=== PATIENT | male | born 1960 | race Caucasian/White ===

== ENCOUNTER 2019-01-27 15:03 | Observation (INO) | payer OTHER ==
[~2019-01-27] VITALS: Ht 185.4 cm; Wt 131.5 kg
[2019-01-27 15:11] VITALS: BP 148/91
[2019-01-27] MEDS ORDERED: AMLO10TA PO (15:15)
[2019-01-27] MEDS ORDERED: LISI40TA12 PO (15:15)
[2019-01-27] MEDS ORDERED: ATEN50TA8 PO (15:17)
[2019-01-27] MEDS ORDERED: ORE25 PO (15:17)
[2019-01-27] MEDS ORDERED: METF1000 PO (15:25)
[2019-01-27] MEDS ORDERED: TRI48 PO (15:25)
[2019-01-27] MEDS ORDERED: CYCL10TA33 PO (15:25)
[2019-01-27] MEDS ORDERED: GABA400C PO (15:25)
[2019-01-27] MEDS ORDERED: LISI-420 PO (15:25)
[2019-01-27] MEDS ORDERED: IBUP-2213 PO (15:25)
[2019-01-27] MEDS ORDERED: GLIP10TE PO (15:25)
[2019-01-27] MEDS ORDERED: OMEP20TC12 PO (15:25)
[2019-01-27] MEDS ORDERED: ACET-787 PO (15:25)
[2019-01-27] MEDS ORDERED: VITD400 PO (15:25)
[2019-01-27 15:44] LABS: BASOPHILS # (AUTO) 0.1 K/uL (0.00-0.22); EOSINOPHILS # (AUTO) 0.2 K/uL (0-0.4); EOSINOPHILS % (AUTO) 2.8 % (0.0-4.0); HEMATOCRIT 36.4 % (36-52); HEMOGLOBIN 12.3 g/dL (12.0-18.0); LYMPHOCYTES # (AUTO) 1.1 K/uL (2.0-11.5); LYMPHOCYTES % (AUTO) 12.3 % (20.5-51.1); MEAN CORPUSCULAR HEMOGLOBIN 30 pg (27-31); MEAN CORPUSCULAR HGB CONC 34 g/dL (33-37); MEAN CORPUSCULAR VOLUME 88.7 fL (80-94); MONOCYTES # (AUTO) 0.4 K/uL (0.8-1.0); MONOCYTES % (AUTO) 4.8 % (1.7-9.3); NEUTROPHILS # (AUTO) 6.8 K/uL (1.8-7.7); NEUTROPHILS % (AUTO) 79.1 % (42.2-75.2); PLATELET COUNT (AUTO) 322 K/uL (140-450); RED CELL DISTRIBUTION WIDTH 14.1 % (11.6-13.7); WHITE BLOOD COUNT (AUTO) 8.6 K/uL (4.8-10.8)
[2019-01-27 16:13] LABS: ANION GAP 9.1 (8-16); CARBON DIOXIDE 35.9 mmol/L (21-32)
[2019-01-27 16:14] LABS: ALBUMIN 3.1 g/dL (3.4-5.0); CREATININE 1.9 mg/dL (0.7-1.3); TOTAL BILIRUBIN 0.3 mg/dL (0.0-1.0)
[2019-01-27 18:15] LABS: APPEARANCE,URINE CLEAR (CLEAR); BILIRUBIN,URINE NEGATIVE (NEGATIVE); BLOOD, URINE NEGATIVE (NEGATIVE); COLOR,URINE YELLOW (YELLOW); LEUKOCYTE ESTERASE ,URINE NEGATIVE (NEGATIVE); NITRITE, URINE NEGATIVE (NEGATIVE); UGLUCOSE 3+ (NEGATIVE)
[2019-01-27] MEDS ORDERED: MAG SULF 2000 MG/WATER PREMIX 100 ML IV ONE (18:15)
[2019-01-27] MEDS ORDERED: KCL 20 MEQ/WATER INJ PREMIX 200 ML IV ONE (18:15)
[2019-01-27] MEDS ORDERED: ONDANSETRON 4 MG/2 ML VIAL IVP PRN (18:30)
[2019-01-27] MEDS: NACL 0.45% 1,000 ML IV SCH ×2 (18:30→20:00)
[2019-01-27 18:44] LABS: RBC,URINE 0-5 /HPF (0-5)
[2019-01-27 20:00] VITALS: BP 147/85
[2019-01-27 22:48] LABS: MAGNESIUM,URINE RANDOM 6.3 mg/dL (1.0-13.0)
[2019-01-27] MEDS: HYDROcodone/APAP 5/325 MG 1 TAB TAB PO PRN (22:53)
[2019-01-27] MEDS ORDERED: GABAPENTIN 300 MG CAP PO SCH (23:00)
[2019-01-28] VITALS: BP 137/77
[2019-01-28] MEDS: NACL 0.45% 1,000 ML IV SCH (02:54)
[2019-01-28 04:00] VITALS: BP 128/62
[2019-01-28 07:53] LABS: BASOPHILS # (AUTO) 0.1 K/uL (0.00-0.22); BASOPHILS % (AUTO) 0.9 % (0.0-2.0); EOSINOPHILS # (AUTO) 0.3 K/uL (0-0.4); EOSINOPHILS % (AUTO) 3.6 % (0.0-4.0); HEMATOCRIT 35.1 % (36-52); HEMOGLOBIN 11.8 g/dL (12.0-18.0); LYMPHOCYTES # (AUTO) 1.8 K/uL (2.0-11.5); LYMPHOCYTES % (AUTO) 21.4 % (20.5-51.1); MEAN CORPUSCULAR HEMOGLOBIN 30 pg (27-31); MEAN CORPUSCULAR HGB CONC 34 g/dL (33-37); MEAN CORPUSCULAR VOLUME 89.3 fL (80-94); MONOCYTES # (AUTO) 0.6 K/uL (0.8-1.0); MONOCYTES % (AUTO) 6.5 % (1.7-9.3); NEUTROPHILS # (AUTO) 5.8 K/uL (1.8-7.7); NEUTROPHILS % (AUTO) 67.6 % (42.2-75.2); PLATELET COUNT (AUTO) 335 K/uL (140-450); RED BLOOD CELL COUNT(AUTO) 3.93 MIL/uL (4.20-6.10); RED CELL DISTRIBUTION WIDTH 14.1 % (11.6-13.7); WHITE BLOOD COUNT (AUTO) 8.6 K/uL (4.8-10.8)
[2019-01-28 08:02] LABS: ALBUMIN 2.2 g/dL (3.4-5.0); ANION GAP 17.3 (8-16); CREATININE 1.5 mg/dL (0.7-1.3); POTASSIUM 4.3 mmol/L (3.5-5.1)
[2019-01-28 08:29] VITALS: BP 141/76
[2019-01-28] MEDS ORDERED: ENOXAPARIN 30 MG/0.3 ML SYR SUBQ SCH (09:00)
[2019-01-28] MEDS: HYDROcodone/APAP 5/325 MG 1 TAB TAB PO PRN (09:42)
[2019-01-28] MEDS ORDERED: POTASSIUM CHLORIDE 10 MEQ TABER PO SCH (10:30)
[2019-01-28 10:56] VITALS: BP 141/76
== END 2019-01-28 11:45 | disposition home or self-care (01) ==
LOC: MED 15:03 → MTU 18:35
PROVIDERS: ADMIT Internal Medicine; ATTEND Internal Medicine
DX: E87.6 Hypokalemia (principal); M54.5 Low back pain; G89.29 Other chronic pain; I12.9 Hypertensive chronic kidney disease with stage 1 through stage 4 chronic kidney disease, or unspecified chronic kidney disease; E11.22 Type 2 diabetes mellitus with diabetic chronic kidney disease; N18.9 Chronic kidney disease, unspecified; N17.9 Acute kidney failure, unspecified; E86.0 Dehydration; E66.01 Morbid (severe) obesity due to excess calories; Z82.49 Family history of ischemic heart disease and other diseases of the circulatory system; R53.1 Weakness; Z83.3 Family history of diabetes mellitus; E83.42 Hypomagnesemia
CPT/HCPCS: 36415; 76770; 80053; 81001; 83735; 84133; 85025; 87081; 87086; 93005; 96361; 96365; 96366; 96368; 96372; 99291; G0378; J1650; J3475; J3480; Q0092